=== PATIENT | female | born 1955 | race Caucasian/White ===

== ENCOUNTER 2019-11-10 07:22 | Emergency (ER) | payer OTHER ==
[~2019-11-10] VITALS: Ht 170.2 cm; Wt 95.5 kg
[2019-11-10] MEDS ORDERED: CAND4TAB7 PO (07:28)
[2019-11-10] MEDS ORDERED: METF-960 PO (07:28)
[2019-11-10] MEDS ORDERED: OMEG-136 PO (07:28)
[2019-11-10] MEDS ORDERED: PRAV40TA4 PO (07:28)
[2019-11-10] MEDS ORDERED: ASPI-728 PO (07:28)
[2019-11-10] MEDS ORDERED: SODIUM CHLORIDE 0.9% 1,000 ML IV ONE (08:00)
[2019-11-10 08:17] LABS: BASOPHILS % (AUTO) 1.1 % (0.0-2.0); EOSINOPHILS % (AUTO) 3.6 % (1.0-6.0); HEMATOCRIT 41.3 % (36-46); LYMPHOCYTES # (AUTO) 1.8 K/uL (1.0-4.8); LYMPHOCYTES % (AUTO) 31.3 % (22.0-44.0); MEAN CORPUSCULAR HEMOGLOBIN 31.2 pg (26.0-34.0); MEAN CORPUSCULAR HGB CONC 33.8 G/dL (31.0-37.0); MEAN CORPUSCULAR VOLUME 92 fL (80-100); MONOCYTES # (AUTO) 0.5 K/uL (0.1-1.0); MONOCYTES % (AUTO) 9.4 % (2.0-9.0); NEUTROPHILS # (AUTO) 3.1 K/uL (1.8-7.7); NEUTROPHILS % (AUTO) 54.6 % (40.0-70.0); PLATELET COUNT (AUTO) 245 K/uL (150-450); RED BLOOD CELL COUNT(AUTO) 4.48 MIL/uL (4.00-5.20); RED CELL DISTRIBUTION WIDTH 12.9 % (11.5-14.5)
[2019-11-10 08:36] LABS: ANION GAP 6 mmol/L (8-16); CALCIUM, TOTAL 8.8 mg/dL (8.8-10.5); CARBON DIOXIDE 30 mmol/L (22-29); CHLORIDE 100 mmol/L (98-107); CREATININE 0.88 mg/dL (0.60-1.30); GLOMERULAR FILTR. RATE CALC > 60 mL/min (>60); GLUCOSE,RANDOM 179 mg/dL (70-110); POTASSIUM 3.6 mmol/L (3.5-5.1); SODIUM SERUM 136 mmol/L (136-145); UREA NITROGEN, BLOOD 8 mg/dL (7-18)
[2019-11-10 09:15] VITALS: BP 130/87
[2019-11-10 14:29] LABS: GLUCOSE,POINT OF CARE 173 MG/DL (70-110)
== END 2019-11-10 09:55 | disposition home or self-care (01) ==
LOC: EMS 07:34
DX: E11.65 Type 2 diabetes mellitus with hyperglycemia (principal); R42 Dizziness and giddiness; I51.9 Heart disease, unspecified; Z79.84 Long term (current) use of oral hypoglycemic drugs
CPT/HCPCS: 36415; 80048; 82962; 85025; 96360; 96361; 99283; J7030

== ENCOUNTER 2021-04-09 13:01 | Emergency (ER) | payer OTHER ==
[~2021-04-09] VITALS: Ht 170.2 cm; Wt 90.9 kg
[~2021-04-09 13:01] MED LIST: ASPI-1450 PO; CAND4TAB7 PO; METF-1211 PO; OMEG-136 PO; PRAV40TA4 PO
[2021-04-09 13:07] VITALS: BP 127/73
[2021-04-09 14:51] LABS: COVID AG,FIA SOURCE NASOPHARYNGEAL
== END 2021-04-09 17:00 | disposition home or self-care (01) ==
LOC: EMS 13:04
DX: U07.1 COVID-19 (principal); E11.9 Type 2 diabetes mellitus without complications; Z79.899 Other long term (current) drug therapy
CPT/HCPCS: 99283

== ENCOUNTER 2021-10-28 09:36 | Emergency (ER) | payer OTHER ==
[~2021-10-28] VITALS: Ht 160 cm; Wt 70.5 kg
[~2021-10-28 09:36] MED LIST changes: +CAND4TAB PO; -CAND4TAB7 PO
[2021-10-28 09:42] VITALS: BP 136/94
[2021-10-28 10:14] LABS: COVID AG,FIA SOURCE NASOPHARYNGEAL
== END 2021-10-28 10:43 | disposition home or self-care (01) ==
LOC: EMS 09:36
DX: Z20.822 Contact with and (suspected) exposure to COVID-19 (principal); E11.9 Type 2 diabetes mellitus without complications; Z79.899 Other long term (current) drug therapy
CPT/HCPCS: 99283